=== PATIENT | male | born 1945 | race Caucasian/White ===

== ENCOUNTER 2017-11-29 10:32 | Inpatient (IN) | payer OTHER ==
[~2017-11-29] VITALS: Ht 177.8 cm; Wt 102.4 kg
[2017-11-29] MEDS ORDERED: FUROSEMIDE 40 MG/4 ML VIAL IV ONE (11:00)
[2017-11-29 11:03] LABS: Basophils # (auto) 0 uL; Lymphocytes # (auto) 1.8 uL; Mean Corpuscular Hgb Conc. 31.8 g/dL (32.0-36.0); Monocytes # (auto) 0.7 uL
[2017-11-29 11:04] LABS: Basophils % (auto) 0.3 % (0.0-2.0); Eosinophils # (auto) 0.1 uL; Hematocrit 55.1 % (41.0-53.0); Hemoglobin 17.5 g/dL (13.5-17.5); Lymphocytes % (auto) 24.7 % (10.0-50.0); Mean Corpuscular Hemoglobin 28.8 pg (28.0-32.0); Mean Corpuscular Volume 90.5 fL (80.0-100.0); Monocytes % (auto) 9.3 % (0.0-12.0); Neutrophils # (auto) 4.8 uL; Neutrophils % (auto) 64.7 % (37.0-80.0); Nucleated Red Blood Cells % 0.6 %; Platelet Count (auto) 95 10^3/uL (140-450); Red Blood Cells 6.09 10^6/uL (4.5-5.90); Red Cell Distribution Width 17.9 % (11.8-14.3); White Blood Cell 7.4 10^3/uL (4.4-10.8)
[2017-11-29 11:21] LABS: Alanine Aminotransferase 30 U/L (16-61); Albumin 3.4 g/dL (3.4-5.0); Anion Gap 5 (5-15); Aspartate Aminotransferase 12 U/L (15-37); BUN/Creatinine Ratio 25.9; Blood Urea Nitrogen 28 mg/dL (7-18); Calcium 8.2 mg/dL (8.5-10.1); Carbon Dioxide 31 mmol/L (21-32); Chloride 107 mmol/L (98-107); GFR African American 87 mL/min; GFR Non-African American 72 mL/min; Glucose 101 mg/dL (74-106); Potassium 4.9 mmol/L (3.5-5.1); Sodium 143 mmol/L (136-145)
[2017-11-29 11:26] LABS: Alkaline Phosphatase 35 U/L (45-117); Bilirubin, Total 0.6 mg/dL (0.2-1.0); Total Protein 6.1 g/dL (6.4-8.2)
[2017-11-29] MEDS ORDERED: PROMETHAZINE HCL 25 MG/ML 1ML IV PRN (12:15)
[2017-11-29] MEDS ORDERED: TEMAZEPAM 15 MG CAP PO PRN (12:15)
[2017-11-29] MEDS ORDERED: ACETAMINOPHEN 500 MG TAB PO PRN (12:15)
[2017-11-29] MEDS ORDERED: HYDROcodone-ACET 5/325MG TAB PO PRN (12:15)
[2017-11-29] MEDS ORDERED: MORPHINE SULFATE 8mg/ml INJ SDV IV PRN ×2 (12:15)
[2017-11-29] MEDS ORDERED: ALBUTEROL SULF 2.5 MG/0.5ML(0.5%) NEB SOLN NEB PRN (12:15)
[2017-11-29] MEDS ORDERED: LACTULOSE 20Gm/30ML SOLN PO PRN ×2 (12:15)
[2017-11-29] MEDS ORDERED: LORazepam 0.5 MG TAB PO PRN (12:15)
[2017-11-29] MEDS ORDERED: NITROGLYCERIN 0.4 MG SL TAB SL PRN (12:15)
[2017-11-29] MEDS ORDERED: methylPREDNISolone SOD SUCC 40 MG/ML VL IV SCH (13:00)
[2017-11-29] MEDS: SODIUM CHLOR 0.9% PF (SALINE LOCK) 10ML VIAL/SYR IV SCH ×2 (13:55→22:30)
[2017-11-29] MEDS: DOXYCYCLINE 100MG/250ML 250 ML IV SCH ×2 (13:55→23:29)
[2017-11-29 14:09] VITALS: BP 120/61
[2017-11-29] MEDS: methylPREDNISolone SOD SUCC 40 MG/ML VL IV SCH ×2 (18:13→23:28)
[2017-11-29] MEDS: FUROSEMIDE 40 MG/4 ML VIAL IV SCH (18:13)
[2017-11-29] MEDS: ALBUTEROL SULF 2.5 MG/0.5ML(0.5%) NEB SOLN NEB SCH (18:34)
[2017-11-29] MEDS: IPRATROPIUM BROM 0.5 MG/2.5ML INH SOL NEB SCH (18:34)
[2017-11-29 21:00] VITALS: BP 120/70
[2017-11-29] MEDS: CARVEDILOL 3.125 MG TAB PO SCH (22:00)
[2017-11-30] MEDS: ALBUTEROL SULF 2.5 MG/0.5ML(0.5%) NEB SOLN NEB SCH ×5 (01:09→20:50)
[2017-11-30] MEDS: IPRATROPIUM BROM 0.5 MG/2.5ML INH SOL NEB SCH ×5 (01:09→20:50)
[2017-11-30 04:00] VITALS: BP 98/58
[2017-11-30] MEDS ORDERED: BENA40TA7 PO (05:07)
[2017-11-30] MEDS ORDERED: AMLO5TAB2 PO (05:07)
[2017-11-30] MEDS ORDERED: DOXA4TAB40 PO (05:07)
[2017-11-30 05:08] LABS: Basophils # (auto) 0 uL; Eosinophils # (auto) 0 uL
[2017-11-30 05:11] LABS: Basophils % (auto) 0.2 % (0.0-2.0); Hematocrit 55.8 % (41.0-53.0); Hemoglobin 17.7 g/dL (13.5-17.5); Lymphocytes # (auto) 1.3 uL; Lymphocytes % (auto) 20.3 % (10.0-50.0); Mean Corpuscular Hemoglobin 28.7 pg (28.0-32.0); Mean Corpuscular Hgb Conc. 31.7 g/dL (32.0-36.0); Mean Corpuscular Volume 90.6 fL (80.0-100.0); Monocytes # (auto) 0.1 uL; Monocytes % (auto) 1.2 % (0.0-12.0); Neutrophils # (auto) 4.9 uL; Neutrophils % (auto) 78.3 % (37.0-80.0); Nucleated Red Blood Cells % 0.5 %; Platelet Count (auto) 94 10^3/uL (140-450); Red Blood Cells 6.16 10^6/uL (4.5-5.90); Red Cell Distribution Width 17.7 % (11.8-14.3); White Blood Cell 6.3 10^3/uL (4.4-10.8)
[2017-11-30 05:30] LABS: Albumin 3.3 g/dL (3.4-5.0); BUN/Creatinine Ratio 27.5; Bilirubin, Total 0.6 mg/dL (0.2-1.0)
[2017-11-30] MEDS: FUROSEMIDE 40 MG/4 ML VIAL IV SCH ×2 (06:05→17:32)
[2017-11-30] MEDS: methylPREDNISolone SOD SUCC 40 MG/ML VL IV SCH ×4 (06:06→23:57)
[2017-11-30] MEDS: SODIUM CHLOR 0.9% PF (SALINE LOCK) 10ML VIAL/SYR IV SCH ×3 (06:06→22:00)
[2017-11-30] MEDS ORDERED: ALBUAER3 IN (06:51)
[2017-11-30 08:00] VITALS: BP 116/69
[2017-11-30] MEDS ORDERED: FUROSEMIDE 40 MG/4 ML VIAL IV SCH (10:00)
[2017-11-30] MEDS: NITROGLYCERIN 0.2MG/HR TOPICAL PATCH TD SCH (10:00)
[2017-11-30] MEDS ORDERED: ENALAPRIL MALEATE 2.5 MG TAB PO SCH (10:00)
[2017-11-30] MEDS: ASPirin 81 mg TAB PO SCH (10:06)
[2017-11-30] MEDS: POTASSIUM CHL 20 Meq TABLET PO SCH (10:06)
[2017-11-30] MEDS: CARVEDILOL 3.125 MG TAB PO SCH ×2 (10:07→22:01)
[2017-11-30] MEDS: ENOXAPARIN SOD 40 MG/0.4 ML SYRINGE SC SCH (10:07)
[2017-11-30] MEDS: DOXYCYCLINE 100MG/250ML 250 ML IV SCH (11:45)
[2017-11-30 12:00] VITALS: BP 115/64
[2017-11-30 16:00] VITALS: BP 102/57
[2017-11-30 21:58] VITALS: BP 111/58
[2017-12-01] MEDS: DOXYCYCLINE 100MG/250ML 250 ML IV SCH ×2 (00:15→12:45)
[2017-12-01] MEDS: IPRATROPIUM BROM 0.5 MG/2.5ML INH SOL NEB SCH ×4 (02:36→14:41)
[2017-12-01] MEDS: ALBUTEROL SULF 2.5 MG/0.5ML(0.5%) NEB SOLN NEB SCH ×4 (02:36→14:41)
[2017-12-01 04:59] VITALS: BP 119/70
[2017-12-01] MEDS: SODIUM CHLOR 0.9% PF (SALINE LOCK) 10ML VIAL/SYR IV SCH ×2 (05:35→15:45)
[2017-12-01] MEDS: methylPREDNISolone SOD SUCC 40 MG/ML VL IV SCH ×2 (05:36→12:45)
[2017-12-01] MEDS: FUROSEMIDE 40 MG/4 ML VIAL IV SCH (05:36)
[2017-12-01 06:26] LABS: Basophils # (auto) 0 uL; Eosinophils # (auto) 0 uL; Hemoglobin 17.5 g/dL (13.5-17.5); Monocytes # (auto) 0.5 uL; Nucleated Red Blood Cells % 0.3 %
[2017-12-01 06:28] LABS: Hematocrit 54.4 % (41.0-53.0); Lymphocytes % (auto) 17.4 % (10.0-50.0); Mean Corpuscular Hemoglobin 28.7 pg (28.0-32.0); Mean Corpuscular Hgb Conc. 32.1 g/dL (32.0-36.0); Mean Corpuscular Volume 89.4 fL (80.0-100.0); Neutrophils # (auto) 9.1 uL; Neutrophils % (auto) 78.6 % (37.0-80.0); Platelet Count (auto) 98 10^3/uL (140-450); Red Blood Cells 6.09 10^6/uL (4.5-5.90); Red Cell Distribution Width 17.2 % (11.8-14.3); White Blood Cell 11.6 10^3/uL (4.4-10.8)
[2017-12-01 06:33] LABS: BUN/Creatinine Ratio 35.1; Calcium 7.9 mg/dL (8.5-10.1); Magnesium 2.8 mg/dL (1.6-2.6); Potassium 5.3 mmol/L (3.5-5.1)
[2017-12-01 08:00] VITALS: BP 122/74
[2017-12-01] MEDS: NITROGLYCERIN 0.2MG/HR TOPICAL PATCH TD SCH (10:00)
[2017-12-01] MEDS: POTASSIUM CHL 20 Meq TABLET PO SCH (10:00)
[2017-12-01] MEDS: ENOXAPARIN SOD 40 MG/0.4 ML SYRINGE SC SCH (11:19)
[2017-12-01] MEDS: CARVEDILOL 3.125 MG TAB PO SCH (11:19)
[2017-12-01] MEDS: ASPirin 81 mg TAB PO SCH (11:19)
[2017-12-01 12:00] VITALS: BP 123/69
[2017-12-01 14:03] LABS: BUN/Creatinine Ratio 31.1; Calcium 7.9 mg/dL (8.5-10.1); Potassium 4.8 mmol/L (3.5-5.1)
[2017-12-01 15:17] VITALS: BP 123/69
== END 2017-12-01 16:00 | disposition home or self-care (01) | DRG 291 ==
LOC: ER 10:32 → TELE 10:33 → DOU IN ICU 20:43 → TELE-CENTR 11-30 18:55
PROVIDERS: ADMIT Internal Medicine; ATTEND Internal Medicine
DX: I11.0 Hypertensive heart disease with heart failure (principal); J96.21 Acute and chronic respiratory failure with hypoxia; E87.5 Hyperkalemia; J44.1 Chronic obstructive pulmonary disease with (acute) exacerbation; I50.33 Acute on chronic diastolic (congestive) heart failure; E83.41 Hypermagnesemia; N40.0 Benign prostatic hyperplasia without lower urinary tract symptoms; Z85.6 Personal history of leukemia; Z87.11 Personal history of peptic ulcer disease; Z87.891 Personal history of nicotine dependence; Z90.49 Acquired absence of other specified parts of digestive tract
CPT/HCPCS: 36415; 71045; 80048; 80053; 80061; 82550; 83735; 83880; 84443; 84484; 85025; 87081; 93005; 94640; 94761; 96374; 96375; 96376; J3490